=== PATIENT | female | born 1990 | race Caucasian/White ===

== ENCOUNTER 2025-02-15 08:50 | Outpatient (AMB) | payer OTHER, SELFPAY ==
--- NOTE | 2025-02-15 09:04 | A.OFFPC_ITS ---
Vital Signs 02/15/25 09:07 Height 5 ft 9.5 in Weight 179 lb BMI 26.1 BP 118/66 Blood Pressure Location Lt brachial Position Sitting Respiration 12 Pulse 78 Pulse Source Pulse Oximeter Temp 97.3 F Temp Source Oral Pulse Oximetry (%) 100 Oxygen Delivery Method Room Air Intake Visit Reasons: CPE Intake Note: New patient to establish care and cpe Insurance Sales Representative Required: No Allergies No Known Allergies Allergy (Verified 02/15/25 09:14) Medication List - Last Reconciled 02/15/25 by STACY Justice No Known Home Meds Tobacco use date assessed: 02/15/25 Dental Screening Dental Screen Date: 02/15/25 Did you have a dental visit in the last 12 months?: Yes Did you have a dental problem in the last 6 months where you did not have access to dental care?: No Was dental information given to patient?: Patient has dentist HPI HPI Comments History of Present Illness Details 34 y/o F with hx of L 3rd phalanx fractu re, migraines w/o aura, vegan diet Social: , works as six sigma project manager Fhx: PGF CHF, Parents w/ chol and HTN, Dementia PGM, MGM Surgery: s/p R hip surgery d/t congenital hip dysplasia w/ hardware Health Maintenance: Tdap 2023 Pap 2021 WNL Flu 02/15/25 Specialist Optho wears glasses History of Present Illness The patient is a 34-year-old female presenting to establish care and for a general health assessment, with concerns about recent weight gain and stress. PCP: reina Pride and reviewed. Migraine without aura: - The patient has a history of migraines without aura, which she believes are linked to her menstrual cycle, typically occurring during the first few days of her period. - Dehydration is another known trigger. - Once a migraine begins, it typically l asts for two to three days. - She manages her migraines by applying pressure to her forehead, avoiding screens, and resting in a dark room. - A past trial of sumatriptan was ineffe ctive. - She previously used propranolol as nee ded for public speaking anxiety, but not daily for migraine prevention. - Was RXd seasonique to supress periods; she does not need control and does not recall if this helped or not. Unhealthy Weight Gain: - The patient is concerned about a signi ficant weight gain of about 40 pounds, from 140 lbs in 2019 to approximately 180 lbs currently, occurring over the last 2-3 years. - Her weight has historically fluctuated between 130 lbs and 210 lbs. - She attributes the weight gain to stre ss eating. - She denies any current binging or purg ing behaviors. - She reports a history of some disorder ed eating habits around age [age] after significant weight loss but feels she has recovered from that. Generalized Anxiety Disorder: - The patient has a history of generaliz ed anxiety disorder. - Recent anxiety and depression screenin g tools were positive. - She is concerned about the mental impa ct of her stressful job. - She previously took propranolol as nee ded for public speaking anxiety but has not been on any other medications for her mood. History of hip dysplasia, R - The patient has a history of right hip dysplasia, which was not identified until she was 29 and began experiencing significant pain. - She underwent corrective surgery with hardware placement and reports her hip has been fine since the procedure. Health Maintenance: - The patient is establishing care, as i t has been a while since her last physical. - Her last comprehensive blood work was performed approximately three years ago at age 31, and the results were normal. - Her vaccinations are up to date. - For contraception, she and her use condoms. - Family history is significant for lakia ntia in her paternal grandmother and possibly her maternal grandmother, as well as high cholesterol and high blood pressure in her parents. Past Medical History - Migraines without aura - Generalized anxiety disorder - Left third phalanx fracture - Right hip dysplasia, status post-surgi vik correction with hardware at age 29 - History of disordered eating behaviors around age [age], which she reports as resolved - Past Medications: Propranolol PRN for anxiety, Sumatriptan for migraines (ineffective) - Allergies: No known allergies Review of Systems - Constitutional: Reports unintentional weight gain of approximately 40 pounds over the last 2-3 years. Reports significant job-related stress. - Neurological: Reports recurrent migrai ludwin, lasting 2-3 days, associated with her menstrual cycle and dehydration. - Psychiatric: Reports symptoms of anxie ty and stress. Endorses stress eating. Denies bingeing or purging behaviors. - Musculoskeletal: No current hip pain r eported post-surgery. Physical Exam General: Well developed, well nourished, in no acute distress. Appears stated age. Head: Normocephalic, atraumatic. Eyes: Pupils are equal, round and reactive to light and accommodation. Conjunctivae are clear. Vision grossly normal. Thyroid nonpalpable Lungs: Clear to auscultation bilaterally. No rales, rhonchi or wheeze noted. Good air flow in all lomas. Heart: Regular rate and rhythm. No murmurs, click, rubs or gallops are noted. Pulses: Peripheral pulses are equal and palpable bilaterally. Extremities: No clubbing, cyanosis nor edema is noted. Psych: Mood and affect appropriate. Results Pending Medical Decision Making The patient is a 34-year-old female establishing care with concerns of significant weight gain, stress, and menstrually-related migraines. Her weight gain appears related to stress eating, but to rule out an underlying organic cause, I have ordered comprehensive screening labs, including a CBC, CMP, HbA1c, lipid panel, TSH, vitamin D, and B12. For her catamenial migraines, we will initiate a trial of prophylactic vitamin therapy with magnesium oxide and riboflavin daily at bedtime, as this is a non- hormonal option that can be effective. I educated the patient on selecting the correct form of magnesium to avoid gastrointestinal side effects. Given her positive screens for anxiety and depression and history of LOIS, talk therapy was offered, but she has opted to defer a referral at this time. The plan is to administer an influenza vaccine today, obtain labs, start the migraine prophylaxis, and have her follow up in 4 weeks to review all results and assess treatment efficacy, which allows for her next menstrual cycle to pass. Plan 1. Migraine Without Aura - Initiate a trial of prophylactic thera py with magnesium oxide and riboflavin to be taken daily at bedtime. - Prescriptions for both were sent to [facility] patient's preferred pharmacy, [facility]. - Patient was educated on the importance of purchasing magnesium oxide specifically to avoid the laxative effect of magnesium citrate. - Follow up in approximately 4 weeks to assess the effectiveness of the treatment, particularly in relation to her next menstrual cycle. 2. Unhealthy Weight Gain / Stress Eating - Ordered comprehensive screening labs t o rule out an organic cause for weight gain, including a CBC, CMP, lipid panel, HbA1c, TSH, vitamin D, and B12. - Discussed talk therapy as a potential intervention for stress eating; patient declined a referral at this visit. - Plan to review lab results and discuss further management at the 4-week follow-up appointment. 3. Health Maintenance - The patient is establishing primary ca re with this visit. - Administering influenza vaccine today. - Provided instructions for patient port al sign-up and use for communication. - Scheduled a follow-up visit in [facility] 4 weeks to review lab results and monitor progress. Patient Instructions - Take magnesium oxide and riboflavin ev day at bedtime to help prevent your migraines. - If buying over the counter, make sure you get magnesium oxide, not magnesium citrate, which is a laxative. - If buying riboflavin over the counter, get only riboflavin, not a B-complex vitamin. - You will receive a flu shot today befo re you leave. - Please go to the lab here in the [facility] to have your blood drawn today. - Sign up for the patient portal using [employer] email link you receive. The link is only active for 24 hours. - Please use the messaging feature in e patient portal to communicate with the office. Do not use the appointment request feature. - Make a follow-up appointment at the [facility] desk for about 4 weeks from now. Consent Patient was informed and verbally consented to the use of an ambient scribe for clinic note documentation during this visit. Total time spent caring for the patient today was 45 minutes. This includes time spent before the visit reviewing the chart, time spent during the visit, and time spent after the visit on documentation, reviewing laboratory results, diagnostic imaging, medications, performing a medically necessary evaluation, counseling on diagnoses, care coordination, ordering appropriate tests, ordering appropriate medications, review of tests performed by other providers, reporting test results with the patient, communication with other healthcare providers. [facility] Medical History (Updated 02/15/25 @ 09:41 by MIGUEL ÁNGEL Justice) Migraines Surgical History (Updated 02/15/25 @ 09:41 by MIGUEL ÁNGEL Justice) History of hip surgery Social History (Updated 02/15/25 @ 09:10 by Ryan Shaffer MA) Household Members: Spouse Both parents involved: No Caregiver staying overnight: No Housing: House Are you a primary clinical care leader to a significant other at home: No Do you presently have visiting nurse or other home services: No 75 years or older and lives alone: No Alcohol intake: never Patient Tobacco Use Status: Never used Tobacco e-Cigarette/Vaping Use: Never Used Second Hand Smoke Exposure: No Current occupational status: employed Current occupation: computer programming manager Current occupational exposures/hazards: No Cognitive needs: No Hearing needs: No Vision needs: Yes (wear glasses) Questionnaire PHQ-9 Over the last 2 weeks, how often have you been bothered by any of the following problems? 1. Little interest or pleasure in doing things: not at all 2. Feeling down, depressed, or hopeless: several days 3. Trouble falling or staying asleep, or sleeping too much: several days 4. Feeling tired or having little energy: not at all 5. Poor appetite or overeating: several days 6. Feeling bad about yourself - or that you are a failure or have let yourself or your family down: not at all 7. Trouble concentrating on things, such as reading the newspaper or watching television: nearly every day 8. Moving or speaking so slowly that other people could have noticed. Or the opposite - being so fidgety or restless that you have been moving around a lot more than usual: several days 9. Thoughts that you would be better off or of hurting yourself in some way: not at all Total score: 7 Depression Screening Interpretation: Positive Depression Screening Follow-up: Existing condition and In treatment Depression Screening Done: Yes 33227 - PHQ-9 Billing: Yes Source: Developed by Drs. Florencio Yadav, Iqra Harrington, Antwon Denis and colleagues, with an educational mary from [employer]. Thrive Questionnaire Date Thrive assessed: 02/15/25 I am a: Patient What is your living situation today?: I have a steady place to live Within the past 12 months, did the food you bought not last and you didn't have the money to get more?: Never true Within the past 12 months, did you worry whether your food would run out before you got money to buy more?: Never true Do you have trouble paying for medicines?: No Do you have trouble getting transportation to medical appointments?: No Do you have trouble paying your heating and electricity bill?: No Do you have trouble taking care of your child, family member or friend?: No Do you have trouble with day-to-day activities such as bathing, preparing meals, shopping, managing finances, etc.?: No Are you currently unemployed and looking for a job?: No Are you interested in more education?: No Please select the resources that you would like help with: None Currently or been in a relationship where the following occur: No concerns reported THRIVE Score: 0 AUDIT C Alcohol Use Questionnaire (AUDIT-C) 1. How often do you have a drink containing alcohol?: Never 3. How often do you have six or more drinks on one occasion?: Never Total Score: 0 Score Reviewed/Action Taken: Yes LOIS-7 AMB Questionnaire LOIS-7 Date LOIS - 7 assessed: 02/15/25 Feeling nervous, anxious, or on edge: 2 = More than half the days Not being able to stop or control worryin = Several days Worrying too much about different things: 2 = More than half the days Trouble relaxin = Nearly every day Being so restless that it is hard to sit still: 3 = Nearly every day Becoming easily annoyed or irritable: 2 = More than half the days Feeling afraid as if something awful might happen: 3 = Nearly every day Total LOIS-7 score (0-4 normal; 5-9 mild; 10-14 moderate; 15-21 severe): 16 Source: Developed by Drs. Florencio Yadav, Iqra Harrington, Antwon Denis and colleagues, with an educational mary from [employer]. LOIS-7 Assessment Billing LOIS-7 Assessment Tool: LOIS-7 Assessment 35907 Physical exam (Primary Care) Vital Signs: Last Vital Signs Temp 97.3 F 02/15/25 09:07 Pulse 78 02/15/25 09:07 Resp 12 02/15/25 09:07 BP 118/66 02/15/25 09:07 Pulse Ox 100 02/15/25 09:07 Oxygen Delivery Method Room Air 02/15/25 09:07 BMI result Body Mass Index 26.1 Tobacco/Smoking Status: Tobacco use Status Tobacco use date assessed 02/15/25 02/15/25 09:09 Patient Tobacco Use Status Never used Tobacco 02/15/25 09:10 e-Cigarette/Vaping Use Never Used 02/15/25 09:10 PHQ-9: PHQ-9 Score PHQ-9: Total score 7 02/15/25 09:16 Depression Screening Interpretation: Positive Depression Screening Follow-up: Existing condition and In treatment Thrive Assessment: Date of Thrive Assessment Date Thrive assessed 02/15/25 02/15/25 09:09 Currently or been in a relationship where the following occur: No concerns reported Office Procedures Flu Questionnaire Does the patient have a severe egg allergy?: No Does the patient have severe life threatening allergies?: No Does the patient have a fever or illness today?: No Has the patient ever had Guillain-Milo Syndrome?: No Has the patient ever had any past reaction to a flu shot?: No Immunizations Fluarix [id number] (PF) 45 mcg (15 mcg x 3)/0.5 mL IM syringe Performing Provider: MIGUEL ÁNGEL Justice Performing Location: [facility] Family Medicine Administered by: Ryan Shaffer MA on 02/15/25 09:36 Dose Route Admin Location Dispensed Lot Number Expiration Date [facility] Insurance Sales Representative 0.5 mL IM Left Deltoid 0.5 mL [id number] 10/08/25 10576-235-42 [employer] VIS Given Date VIS Provided VIS Publication Date 02/15/25 Single Vaccine 24 Eligibility Eligibility Date Funding Source Not [facility] Eligible 02/15/25 Private Coding Level of Care Code New Pt Level 4 (30732) Complex EM visit Add On G2211 Diagnoses Encounter to establish care Z76.89 History of Papanicolaou smear of cervix Z92.89 Migraine without aura and without status migrainosus, not intractable G43.009 Intractability: not intractable Status migrainosus presence: without status migrainosus LOIS (generalized anxiety disorder) F41.1 Mild episode of recurrent major depressive disorder F33.0 Major depression episode severity: mild Influenza vaccination administered at current visit Z23 Additional Codes LOIS-7 Assessment Billing - LOIS-7 Assessment Tool: LOIS-7 Assessment 03303 ([id number]) PHQ-9 - 69615 - PHQ-9 Billing: Yes ([id number]) Assessment & Plan Assessment & Plan (1) Encounter to establish care: Code(s): Z76.89 - Persons encountering health services in other specified circumstances (2) History of Papanicolaou smear of cervix: Onset Date: ~08/2021 Code(s): Z92.89 - Personal history of other medical treatment Category: Medical (3) Migraine without aura: Code(s): G43.009 - Migraine without aura, not intractable, without status migrainosus Category: Medical Qualifiers: Intractability: not intractable Status migrainosus presence: without status migrainosus Qualified Code(s): G43.009 - Migraine without aura, not intractable, without status migrainosus (4) LOIS (generalized anxiety disorder): Code(s): F41.1 - Generalized anxiety disorder Category: Medical (5) MDD (major depressive disorder), recurrent episode: Code(s): F33.9 - Major depressive disorder, recurrent, unspecified Category: Medical Qualifiers: Major depression episode severity: mild Qualified Code(s): F33.0 - Major depressive disorder, recurrent, mild (6) Influenza vaccination administered at current visit: Onset Date: ~02/15/25 Code(s): Z23 - Encounter for immunization Category: Medical Plan . Orders: Orders Comprehensive Met. Panel Today Z00.00 - Encounter for general adult medical examination without abnormal findings Lipid Panel Today Z00.00 - Encounter for general adult medical examination without abnormal findings Influenza 1426-1924 Immunization Today Z23 - Encounter for immunization Complete Blood Count no Diff Today Z00.00 - Encounter for general adult medical examination without abnormal findings Hemoglobin A1c Today Z00.00 - Encounter for general adult medical examination without abnormal findings Microalbumin, Random (w Creat) Today Z00.00 - Encounter for general adult medical examination without abnormal findings TSH reflex Free T4 Today Z00.00 - Encounter for general adult medical examination without abnormal findings Vitamin B12 and Folate Today Z00.00 - Encounter for general adult medical examination without abnormal findings Vitamin D 25-OH Total Today Z00.00 - Encounter for general adult medical examination without abnormal findings Medications: New magnesium oxide 400 mg PO BEDTIME 90 caps 2RF riboflavin (vitamin B2) 400 mg PO BEDTIME 90 tabs 2RF Patient Instructions: Walk-In Care (Urgent Care): We Make it Easy Walk-in for urgent medical issues such as: ? Seasonal Allergies ? Insect Bites ? Cough ? Diarrhea ? Acute Asthma Attacks ? Back, Knee or Joint Pain ? Ear Infection ? Fever without a Rash ? Headaches ? Nausea ? [place] Eye, Rash or Skin Irritation ? Sore Throat ? Sports Physicals ? Vomiting Most insurances are accepted. Patients do not need to be part of the [facility] to seek care at the walk-in clinic. Locations [address] [place] [address] Open Tuesday through Tuesday 8am-5pm *Hours may vary due to staffing availability. To confirm Walk-In Care hours please call. [address] [address] ? [phone] [facility] in [place] provides services to ages 18 and over. Open Tuesday-Tuesday: 7 a.m. to 5 p.m. and Tuesday: 9 a.m. to 3 p.m.* *Hours may vary due to staffing availability. To confirm Walk-In Care hours in [place], please call [phone]. [address] [place] [address] ? [phone] [facility] in [place] provides services to ages 12 and over. Open Tuesday-Tuesday: 8 a.m. to 5 p.m. Hours may vary due to staffing availability. To confirm Walk-In Care hours in [place], please call [phone]. LABORATORY SERVICES: [facility] Lab ? Primary Location [address] [place] [address] Tuesday through Tuesday 6:00 AM ? 5:00 PM Tuesday 7:00 AM ? 11:00 AM* [phone] The [facility] Lab is centrally located near the front entrance of the [facility] for easy outpatient access. Convenient parking is provided for outpatients. *Hours may vary due to staffing availability. To confirm Laboratory hours for any location, please call [phone]. Offsite Location For your convenience, we offer offsite laboratory draw stations at the following locations: [address] [place] [address] ? [address], [address] Tuesday through Tuesday 7:30 AM ? 1:00 PM* [phone] *Hours may vary due to staffing availability. To confirm Laboratory hours for any location, please call [phone]. [place] ? [address] Tuesday through Tuesday 6:00 AM ? 3:30 PM* Tuesday 6:30 AM ? 3 PM* [phone] *Hours may vary due to staffing availability. To confirm Laboratory hours for any location, please call [phone]. [address] [facility] Tuesday through Tuesday 7:30 AM ? 4:00 PM* [phone] *Hours may vary due to staffing availability. To confirm Laboratory hours for any location, please call [phone] [place] [address] Tuesday through 9:00 AM ? 4:00 PM* *Hours may vary due to staffing availability. To confirm Laboratory hours for any location, please call [phone]. Appointments are not necessary. Walk-ins are welcome. Like all the departments throughout the [facility], our Lab undergoes frequent reviews to ensure the quality and accuracy of test results, and our staff takes special pride in its status as a nationally accredited facility. Patient Portal: [facility] ONE PATIENT. ONE RECORD. BETTER CARE. [facility] has a fully integrated, cutting- edge mobile electronic health information system that has revolutionized the way we care for our patients and manage our organization. This system improves communication and coordination enabling us to provide safe, higher-quality care, and an overall positive experience for staff and patients. Our first priority, as always, is to deliver the highest quality care possible. The system is running in the background supporting that priority. This portal is for all [facility] and [facility] services and practices. If you are experiencing any technical difficulties with enrolling or logging into the Patient Portal please complete the [facility] Patient Portal Technical Support Form. [facility] and [facility] now offers a new secure on-line interactive tool for patients to review their health information ? ?Patient Portal. This interactive web portal will enable patients and their families to take an active role in their care by providing easy, secure access to their health information via the internet. The Patient Portal provides patients with instant access to their health information, including laboratory results, medications, allergies, demographic information, visit history, and more. In addition to managing their own care, parents and health care proxies with authorized consent will appreciate the ability to access the records of those individuals for whom they provide care. Please note: if you wish to gain access (Proxy) to another patient?s portal, you will be required to come to the Medical Records Department in person at [facility]. Both the patient giving proxy access and the proxy will need to provide photo identification and complete the appropriate authorization. The Patient Portal also allows track their appointments online. The [facility] Patient Portal also saves patients time by allowing them to submit updates to their demographic and contact information prior to their visits. Portal email notifications will also alert patients to any new activity on their portal, such as test results and new appointments. In order to initially enroll in the [facility] Patient Portal, you will need to enter some required information including the following: * your [facility] Medical Record number * your personal home email address * name * date of Please note: In order to enroll in the [facility] Patient Portal, we need to have your email address on file in your electronic medical record. ?The email address needs to be specific for one person (yourself) in order for your Portal enrollment to be successful. ?You can update your email address in person with our Registration staff when you are registering for a hospital visit. ?Otherwise, you will need to come to the Health Information Management (Medical Records) Department at [facility]. ?We are open from Tuesday ? Tuesday from 7:30 a.m. ? 4:30 p.m. ?You will be required to present a photo id. Once you have successfully enrolled in the Patient Portal, you will receive a one-time user id and password for the Portal, sent to your email address. ?This will allow you to log into the Patient Portal within 99 hrs and reset your own logon id and password, and define personal security questions. ?Once your permanent login and password have been set, you can log into the [facility] Patient Portal at any time via the blue button above or from the Portal Logon button on any page of the [facility] website. [facility] and [facility] encourage all of our patients to enroll in Patient Portal as it presents a valuable opportunity for patients and their families to actively participate in their care and stay healthy Welcome to [facility]. ?We look forward to working with you.
[2025-02-15 09:07] VITALS: BP 118/66; PULSE 78; RESP 12; TEMP 36.3; O2SAT 100; BMI 26.1
== END 2025-02-15 09:37 | disposition home or self-care (01) ==
LOC: HO.HMCFM 08:51
PROVIDERS: PCP Nurse Practitioner Family; Visit Provider Nurse Practitioner Family
DX: Z76.89 Persons encountering health services in other specified circumstances (principal); Z92.89 Personal history of other medical treatment; G43.009 Migraine without aura, not intractable, without status migrainosus; F41.1 Generalized anxiety disorder; F33.0 Major depressive disorder, recurrent, mild; Z23 Encounter for immunization

== ENCOUNTER 2025-02-15 08:50 | Outpatient (REF) | payer OTHER, SELFPAY ==
--- OUTSIDE RECORDS SUMMARY | 2025-02-15 11:04 | XMS_ITS | Clinical Summary ---
Author Organization [facility] Address [address] [place] [address] Phone Care Team Providers Care Tractor Trailer Driver Name Role Phone Shaina Roldan Primary Care Provider [phone] Judy Hoskins Unavailable Shaina Roldan Unavailable [phone] Social History Tobacco Use Types Packs/Day Years Used Date Smoking Tobacco: Never Assessed Comments Unknown Sex and Gender Information Value Date Recorded Sex Assigned at Not on file Legal Sex Female 1:09 AM EDT Gender Identity Not on file Sexual Orientation Not on file Plan of Treatment Not on file Care Teams Tractor Trailer Driver Relationship Specialty Start Date End Date Shaina Roldan [address] [place] [address] PCP - General 01/17/19 Judy Hoskins [address] [facility] [address] [place] [address] PCP - Insurance PCP 04/19/17 Shaina Roldan [address] [place] [address] PCP - Clinical PCP 01/17/19
--- OUTSIDE RECORDS SUMMARY | 2025-02-15 11:04 | XMS_ITS | Clinical Summary ---
Author Organization [facility] Address [address] [place] [address] Care Team Providers Care Automatic Profile Sander Operator Name Role Phone Unavailable Primary Care Provider Unavailabl e Source Comments PLEASE NOTE, if this patient is a minor, it may be UNLAWFUL to discuss sensitive information that is contained in these records (such as FAMILY PLANNING, MENTAL HEALTH or SUBSTANCE ABUSE) with the minor patient's parent or other person without the patient's specific authorization.[facility] Allergies Active Allergy Reactions Criticality Noted Date Comments Nickel Rash 12/29/2018 Medications No known medications Active Problems Problem Noted Date Diagnosed Date Encounter for counseling regarding contraception 01/09/2019 Assessment & Plan (01/09/2019 8:50 PM EDT): Does not want to be . Reviewed options, could try angela vs other IUD placement w miso vs cervical block given failed insertion attempt in past, not interested in depo/nexplanon. cOCPs patient's first choice, not contraindicated but melasma likely to recur, could trial loloestrin if desires, will send rx if decides on this. Generalized anxiety disorder 12/29/2018 Assessment & Plan (01/09/2019 8:48 PM EDT): Will refer to for therapy. Would rather avoid medications if possible, feels that in some ways her anxiety is helping her to be successful, doesn't want to entirely eliminate, just cope better. Immunizations Immunization Administration Dates Next Due Flu, Cell Culture based, Multi Dose, 6m+, Flucel vax 12/29/2018 Family History Medical History Relation Name Comments No Known Problems Brother Diabetes Maternal Grandfather Osteoarthritis Mother Dementia Paternal Grandmother Cancer Neg breast, colon, ovarian Relation Name Status Comments Brother Maternal Grandfather Mother Paternal Grandmother Social History Tobacco Use Types Packs/Day Years Used Date Smoking Tobacco: Never Smokeless Tobacco: Never Alcohol Use Standard Drinks/Week Comments Yes 0 (1 standard drink = 0.6 oz pur e alcohol) Social Connections Answer Date Recorded Connectedness 0 12/18/2023 Financial Resource Strain Answer Date R ecorded Financial Resource Strain 0 2018 Stress Answer Date Recorded Stress 0 12/29/2018 Physical Activity Answer Date Recorded Physical Activity 0 12/29/2018 Food Insecurity Answer Date Recorded Food 0 12/29/2018 Transportation Needs Answer Date Record ed Transportation 0 12/29/2018 Housing Stability Answer Date Recorded Housing 0 12/29/2018 Safety and Environment Answer Date Woody rded Safety 0 12/29/2018 Utilities Answer Date Recorded Utilities 0 12/29/2018 Employment Answer Date Recorded Employment 0 12/29/2018 Comments Unknown Sex and Gender Information Value Date Recorded Sex Assigned at Not on file Legal Sex Female 7:19 AM PDT Gender Identity Not on file Sexual Orientation Not on file Last Filed Vital Signs Vital Sign Reading Time Taken Comments Blood Pressure 115/73 05/31/2019 10:37 AM EST Pulse 62 05/31/2019 10:37 AM EST Temperature 37.1 C (98.7 F) 05/31/2019 10:37 AM EST Respiratory Rate - - Oxygen Saturation 99% 05/31/2019 10:37 AM EST Inhaled Oxygen Concentration - - Weight 75.6 kg (166 lb 9.6 oz) 05/31/2019 10:37 AM EST Height 174.6 cm (5' 8.75 ) 12/29/2018 8:29 AM ED T Body Mass Index 24.78 12/29/2018 8:29 AM EDT Plan of Treatment Not on file Insurance [employer] Member Subscriber Plan / Payer (Ef fective 2017-Present) Name:Lindsey Dias Relation to Subscriber:Self Name:Lindsey Dias Payer ID:[id number] (NAIC) Type:Indemnity Address: [facility] [id number] [place] [id number]
[2025-02-15 11:51] LABS: Hematocrit 40.3 % (37.0-47.0); Hemoglobin 13.3 g/dl (12.0-16.0); Mean Corpuscular HGB Conc 33.0 g/dl (31.0-35.0); Mean Corpuscular Hemoglobin 30.5 pg (27.0-33.0); Mean Corpuscular Volume 92.4 fL (80.0-98.0); NRBC Abs Auto 0.000 X10*3/uL (0.0-0.012); NRBC Pct Auto 0.0 /100WBC (0.0-0.2); Platelet Count 354 X10*3/uL (160-400); Red Blood Count 4.36 X10*6/uL (4.20-5.50); White Blood Count 3.4 X10*3/uL (4.8-10.8)
[2025-02-15 12:35] LABS: Alanine Aminotransferase 17 U/L (0-31); Albumin Level 4.6 g/dL (3.5-5.0); Alkaline Phosphatase 64 U/L (39-117); Anion Gap 10 (12-20); Aspartate Amino Transferase 20 U/L (5-31); Blood Urea Nitrogen 8 mg/dL (9-16); Calcium 9.3 mg/dL (8.4-10.2); Carbon Dioxide 28 mmol/L (22-29); Chloride 107 mmol/L (96-108); Cholesterol 147 mg/dL (<200); Estimated Glomerular Filt Rate > 60; HDL Cholesterol 55 mg/dL (>40); Potassium 4.2 mmol/L (3.3-5.1); Sodium 141 mmol/L (135-145); Total Protein 7.4 g/dL (6.5-8.0); Triglycerides 46 mg/dL (<150)
[2025-02-15 12:46] LABS: Folate 13.5 ng/mL (> or = 4.0); Vitamin B12 405 pg/mL (200-900)
== END 2025-02-15 08:51 | disposition home or self-care (01) ==
LOC: HO.WFDLDS 08:50
PROVIDERS: PCP Nurse Practitioner Family; Visit Provider Nurse Practitioner Family
DX: Z00.00 Encounter for general adult medical examination without abnormal findings (principal); G43.909 Migraine, unspecified, not intractable, without status migrainosus; R63.5 Abnormal weight gain; F41.1 Generalized anxiety disorder; Q74.2 Other congenital malformations of lower limb(s), including pelvic girdle; G43.009 Migraine without aura, not intractable, without status migrainosus; F33.0 Major depressive disorder, recurrent, mild; Z23 Encounter for immunization; Z76.89 Persons encountering health services in other specified circumstances; Z92.89 Personal history of other medical treatment; Z13.1 Encounter for screening for diabetes mellitus
CPT/HCPCS: 36415; 80053; 80061; 82306; 82570; 82607; 82746; 83036; 84443; 85027; 90471; 90656; 96127

== ENCOUNTER 2025-03-22 08:42 | Outpatient (AMB) | payer OTHER, SELFPAY ==
--- NOTE | 2025-03-22 08:47 | A.OFFPC_ITS ---
Vital Signs 03/22/25 08:50 Height 5 ft 9.5 in Weight 179 lb 4 oz BMI 26.1 BP 118/68 Blood Pressure Location Lt brachial Position Sitting Respiration 12 Pulse 62 Pulse Source Pulse Oximeter Temp 97.6 F Temp Source Oral Pulse Oximetry (%) 98 Oxygen Delivery Method Room Air Intake Visit Reasons: 4 weeks fu headaches/labs Intake Note: Follow up on headaches and review labs Ingot Weigher Required: No Allergies No Known Allergies Allergy (Verified 03/22/25 08:48) Medication List - Last Reconciled 03/22/25 by Gloria Corbin SHELLFISH BED WORKER- cholecalciferol (vitamin D3) 25 mcg PO DAILY magnesium oxide 400 mg PO BEDTIME riboflavin (vitamin B2) 400 mg PO BEDTIME Tobacco use date assessed: 03/22/25 Dental Screening Dental Screen Date: 03/22/25 Did you have a dental visit in the last 12 months?: Yes Did you have a dental problem in the last 6 months where you did not have access to dental care?: No Was dental information given to patient?: Patient has dentist HPI HPI Comments History of Present Illness Details 34 y/o F with hx of L 3rd phalanx fractu re, migraines w/o aura, vegan diet, leukopenia , vit d def, LOIS Social: , works as application project leader Fhx: PGF CHF, Parents w/ chol and HTN, Dementia PGM, MGM Surgery: s/p R hip surgery d/t congenital hip dysplasia w/ hardware Health Maintenance: Tdap 2023 Pap 2021 WNL, repeat 2026 by co Flu 02/15/25 Specialist Optho wears glasses History of Present Illness The patient is a 34-year-old female presenting for a follow-up appointment to discuss lab results, migraines, weight gain, stress, anxiety, and contraception also for CPE . Migraine without aura: - The patient complains of migraines wit hout aura and was previously advised to start magnesium oxide and riboflavin for prophylaxis. - She has been taking magnesium and ribo flavin for about a week. - Since her last visit, she has had two migraines: one about two weeks after the visit and another during her menstrual period. Anxiety and Unintentional Weight Gain: - The patient has concerns about unhealt hy weight gain and stress eating, which prompted lab work at her last visit. - She attributes the weight gain to her eating habits and has been trying to exercise more regularly, although she has not seen much improvement in a month, partly due to the holidays. - Her job is a significant source of str ess, and she recently experienced a week that was difficult enough to cause a panic attack. - She previously did not think counselin g would be beneficial. - The patient has been historically agai nst medications for anxiety and overeating but is now open to considering them. Contraception Management: - The patient wishes to start cont rol primarily to stop her periods. - She has a history of discontinuing bir th control due to significant spotting. - The patient has no plans to get pregna nt and does not wish to have children in the future. Urinary Frequency: - The patient reports frequent urination , which she believes is related to anxiety, especially during work meetings. - She has no signs of a urinary tract in fection or concerns for sexually transmitted diseases. Health Maintenance: - The patient's last Pap smear was in and was normal. She would like for me to do her next one, due 2026 - She is up to date on her flu and tetan us shots. - She is not currently active with a HEAD TENNIS COACH provider. - She follows a vegan diet. - Lab work was ordered at the last visit for general screening and to evaluate for causes of weight gain. - Her last eye exam was two years ago, a nd her last dental visit was routine. She wears glasses Past Medical History - Migraine without aura - Anxiety with panic attacks - Vitamin D deficiency, currently taking a supplement - History of discontinuing oral contrace ptives due to spotting - No history of seizures Past Surgical History - Removal of a noncancerous mole on the abdomen. Family History Family history was reviewed at the previous visit. Social History - Employment: Reports a stressful job. - Nutrition: Follows a vegan diet. - Exercise: Has been trying to exercise more regularly. - Family Planning: Does not desire child kasia. Review of Systems - Constitutional: Denies fever, chills. Reports unintentional weight gain. - Neurological: Reports migraines withou t aura. Denies seizures. - Psychiatric: Reports anxiety, stress, panic attacks, and stress eating. Feels her mood has improved with vitamin D supplementation. - Genitourinary: Reports frequent urinat ion she associates with anxiety. Denies concerns for STDs. - Skin: Reports chronically dry skin, es pecially in winter. Notes a new skin tag. - Musculoskeletal: Denies joint pain or swelling. Reports normal muscle soreness after workouts. - Gastrointestinal: Reports normal bowel movements. Physical Exam General: Well developed, well nourished, in no acute distress. Appears stated age. Head: Normocephalic, atraumatic. Eyes: Pupils are equal, round and reactive to light and accommodation. Conjunctivae are clear. Scleras nonicteric bilat. Vision grossly normal. Ears: TMs clear AU, EACS WNL Nose: Patent, without discharge. Dry skin noted. Neck: No carotid bruit bilat. Supple, no adenopathy or thyromegaly. Breast: Clinical breast exam performed. Normal findings. Edu on SBE. Lungs: Clear to auscultation bilaterally. No rales, rhonchi or wheeze noted. Good air flow in all lomas. Heart: Regular rate and rhythm. No murmurs, click, rubs or gallops are noted. Abdomen: Bowel sounds present in all quadrants. The abdomen is soft, nontender, with no masses or organomegaly noted. No hernias are noted. : Deferred. Reviewed recommendations for routine HEAD TENNIS COACH. Pulses: Peripheral pulses are equal and palpable bilaterally. Extremities: No clubbing, cyanosis nor edema is noted. Neurologic: Gait and station normal. Cranial Nerves 2-12 intact. Motor strength grossly symmetrical and intact. No sensory loss. Balance normal. Skin: No rashes, ulcers, or lesions noted. Turgor is good. Skin color is good. Hair and nails are without abnormalities. Noted dry skin and a small skin tag. Psych: Normal eye contact, affect and mood appropriate, and normal interactions. Patient is alert and appropriate to context. Discussed anxiety and overeating, prescribed Wellbutrin. Results see below Medical Decision Making The patient is a 34-year-old female here for a follow-up of migraines, anxiety with stress eating, and unintentional weight gain. Her recent lab work was largely reassuring, ruling out common metabolic causes for her weight gain such as thyroid dysfunction or diabetes. 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 Reassurance was provided, and the plan is to monitor this with future lab work. The patient's unintentional weight gain and stress eating appear to be primarily driven by anxiety related to her job, as evidenced by her report of panic attacks. Since lifestyle modifications such as exercise have not been sufficient, and she is now open to medication, bupropion (Wellbutrin) is recommended. This choice is based on its dual efficacy for anxiety and curbing of overeating behaviors. Contraindications such as seizure history and were ruled out. The patient was counseled on the side effect profile, including potential constipation and a rare risk of increased anxiety due to its stimulant properties, and the need for daily morning administration. For contraception, the patient desires menstrual suppression. Levonorgestrel- ethinyl (91) is a suitable option as it provides extended-cycle contraception, leading to only four periods per year, which may also reduce her menstrual migraines. She was counseled that spotting can occur, particularly in the first year, as her body adjusts. Her urinary frequency is likely a behavioral manifestation of anxiety, and behavior modification with timed voiding was recommended as the initial approach. She will continue migraine prophylaxis with magnesium and riboflavin. A physical exam was performed today, and follow-up is scheduled in 6-8 weeks to assess her response to the new medications and for a weight check. Plan Health Maintenance - An annual physical examination was com pleted today. - A clinical breast exam performed elaine artemio as part of her physical. - Pap smears are recommended every five years, given her history of normal results. - Continue vitamin D supplement. - CBC will be checked in 3 months to mon itor leukopenia, CBC annually to monitor for anemia in the setting of vegan diet, include b12. - The patient was advised to apply a low -dose hydrocortisone cream for her dry skin. - Follow up in 6-8 weeks for a medicatio n check. 1. Migraine Without Aura - Continue magnesium oxide and riboflavi n for migraine prophylaxis. - Starting Levonorgestrel-ethinyl (91) b irth control is also intended to reduce the frequency of migraines by reducing the number of menstrual periods to four per year. 2. Anxiety And Stress With Overeating - Start bupropion (Wellbutrin) once lawrence y in the morning to manage anxiety and curb overeating. - A 90-day supply will be sent to her armacy. - The medication is expected to take abo ut two weeks to start working, with full effect in about six weeks. - Patient was counseled on possible side effects, including constipation and a r are potential for increased anxiety. - Follow up in 6-8 weeks to evaluate the medication's effectiveness and for a weight check. 3. Leukopenia - The low white blood cell count is like ly due to cyclical leukopenia and is not concerning at this time. - Will continue to monitor this lab valu e with future blood work 3 months 4. Contraception Management - Initiate Levonorgestrel-ethinyl (91) o ral contraceptive pill to achieve menstrual suppression, which may also help with menstrual migraines. - Patient was counseled that breakthroug h bleeding or spotting might occur, silvano julien within the first year, as her body adjusts. 5. Urinary Frequency - Advised behavioral modification with t imed voiding, aiming to hold her bladder for up to four hours, to retrain bladder habits as this is likely anxiety- related. - The new anxiety medication may also he lp reduce the urge. - The patient was instructed to report i f she feels an uncontrollable urge to urinate, which would warrant further investigation. 6. Vit d def, cont supplement, repeat la bs 3 months. Patient Instructions - Take bupropion (Wellbutrin) one tablet every morning. This medication is for anxiety and to help control stress eating. You should start to notice an effect in about two weeks. - Start taking Levonorgestrel-ethinyl (9 1) control pills as directed. This will cause you to have only four periods per year. You may experience some irregular spotting, especially in the first year, as your body gets used to the new hormone schedule. - Continue taking magnesium and riboflav in for migraine prevention. - Continue taking your vitamin D supplem ent. - For urinary frequency, try to practice timed voiding. This means creating a schedule for using the restroom (for example, every 4 hours) and trying to stick to it, even if you feel an urge sooner. This helps retrain your bladder. - Avoid obsessively checking your weight on the scale. The medication and lifestyle changes will work over time. - Schedule a follow-up appointment in 6- 8 weeks to check on how you are doing with the new medications. - For dry skin on your nose, you can twila ly a small amount of [id number] hydrocortisone cream. - Let me know if you experience any into lerable side effects from the new medications or if you feel an uncontrollable urge to urinate. Consent The patient provided verbal consent for today's physical examination, including a clinical breast exam. Patient was informed and verbally consented to the use of an ambient scribe for clinic note documentation during this visit. An additional 20 minutes was spent addressing the problem(s) noted at todays visit. This includes time spent before the visit reviewing the chart, time spent during the visit, and time spent after the visit on documentation reviewing laboratory results, diagnostic imaging, medications, performing a medically necessary evaluation, counseling on diagnoses, care coordination, ordering appropriate tests, ordering appropriate medications, review of tests performed by other providers, reporting test results with the patient, communication with other healthcare providers. [facility] Medical History (Updated 03/22/25 @ 10:05 by MIGUEL ÁNGEL Justice) Migraines Surgical History (Updated 02/15/25 @ 09:41 by MIGUEL ÁNGEL Justice) History of hip surgery Family History (Updated 02/15/25 @ 10:05 by Ryan Shaffer MA) Mother HTN (hypertension) Diabetes Thyroid disorder Father High cholesterol Maternal Grandfather Cardiovascular disease Social History (Updated 02/15/25 @ 09:10 by Ryan Shaffer MA) Household Members: Spouse Both parents involved: No Caregiver staying overnight: No Housing: House Are you a primary animal care assistant to a significant other at home: No Do you presently have visiting nurse or other home services: No 75 years or older and lives alone: No Alcohol intake: never Patient Tobacco Use Status: Never used Tobacco e-Cigarette/Vaping Use: Never Used Second Hand Smoke Exposure: No service: No Current occupational status: employed Current occupation: research & analytics manager Current occupational exposures/hazards: No Cognitive needs: No Hearing needs: No Vision needs: Yes (wear glasses) Questionnaire PHQ-9 Over the last 2 weeks, how often have you been bothered by any of the following problems? 1. Little interest or pleasure in doing things: not at all 2. Feeling down, depressed, or hopeless: not at all 3. Trouble falling or staying asleep, or sleeping too much: not at all 4. Feeling tired or having little energy: not at all 5. Poor appetite or overeating: not at all 6. Feeling bad about yourself - or that you are a failure or have let yourself or your family down: not at all 7. Trouble concentrating on things, such as reading the newspaper or watching television: not at all 8. Moving or speaking so slowly that other people could have noticed. Or the opposite - being so fidgety or restless that you have been moving around a lot more than usual: not at all 9. Thoughts that you would be better off or of hurting yourself in some way: not at all Total score: 0 Depression Screening Interpretation: Negative Depression Screening Done: Yes 26112 - PHQ-9 Billing: Yes Source: Developed by Drs. Florencio Yadav, Iqra Harrington, Antwon Denis and colleagues, with an educational mary from [employer]. Thrive Questionnaire Date Thrive assessed: 03/22/25 I am a: Patient What is your living situation today?: I have a steady place to live Within the past 12 months, did the food you bought not last and you didn't have the money to get more?: Never true Within the past 12 months, did you worry whether your food would run out before you got money to buy more?: Never true Do you have trouble paying for medicines?: No Do you have trouble getting transportation to medical appointments?: No Do you have trouble paying your heating and electricity bill?: No Do you have trouble taking care of your child, family member or friend?: No Do you have trouble with day-to-day activities such as bathing, preparing meals, shopping, managing finances, etc.?: No Are you currently unemployed and looking for a job?: No Are you interested in more education?: No Please select the resources that you would like help with: None Currently or been in a relationship where the following occur: No concerns reported THRIVE Score: 0 LOIS-7 AMB Questionnaire LOIS-7 Date LOIS - 7 assessed: 03/22/25 Feeling nervous, anxious, or on edge: 0 = Not at all Not being able to stop or control worryin = Not at all Worrying too much about different things: 0 = Not at all Trouble relaxin = Not at all Being so restless that it is hard to sit still: 0 = Not at all Becoming easily annoyed or irritable: 0 = Not at all Feeling afraid as if something awful might happen: 0 = Not at all Total LOIS-7 score (0-4 normal; 5-9 mild; 10-14 moderate; 15-21 severe): 0 Source: Developed by Drs. Florencio Yadav, Iqra Harrington, Antwno Denis and colleagues, with an educational mary from [employer]. LOIS-7 Assessment Billing LOIS-7 Assessment Tool: LOIS-7 Assessment 50155 Physical exam (Primary Care) Vital Signs: Last Vital Signs Temp 97.6 F 03/22/25 08:50 Pulse 62 03/22/25 08:50 Resp 12 03/22/25 08:50 BP 118/68 03/22/25 08:50 Pulse Ox 98 03/22/25 08:50 Oxygen Delivery Method Room Air 03/22/25 08:50 BMI result Body Mass Index 26.1 Tobacco/Smoking Status: Tobacco use Status Tobacco use date assessed 03/22/25 03/22/25 08:52 Patient Tobacco Use Status Never used Tobacco 03/22/25 08:48 e-Cigarette/Vaping Use Never Used 03/22/25 08:48 PHQ-9: PHQ-9 Score PHQ-9: Total score 0 03/22/25 08:48 Depression Screening Interpretation: Negative Thrive Assessment: Date of Thrive Assessment Date Thrive assessed 03/22/25 03/22/25 08:48 Currently or been in a relationship where the following occur: No concerns reported Results Reviewed Results Reviewed: Laboratory 02/15/25 Result Units Range Interpretation Provider Comments White Blood Count 3.4 X10*3/uL (4.8-10.8) Low Red Blood Count 4.36 X10*6/uL (4.20-5.50) Hemoglobin 13.3 g/dl (12.0-16.0) Hematocrit 40.3 % (37.0-47.0) Mean Corpuscular Volume 92.4 fL (80.0-98.0) Mean Corpuscular Hemoglobin 30.5 pg (27.0-33.0) Mean Corpuscular Hemoglobin Concent 33.0 g/dl (31.0-35.0) Red Cell Distribution Width 12.7 % (11.0-16.0) Platelet Count 354 X10*3/uL (160-400) Mean Platelet Volume 10.8 fL (9.4-12.3) Nucleated RBC Absolute Count (auto) 0.000 X10*3/uL (0.0-0.012) Nucleated Red Blood Cells % (auto) 0.0 /100WBC (0.0-0.2) Sodium Level 141 mmol/L (135-145) Potassium Level 4.2 mmol/L (3.3-5.1) Chloride Level 107 mmol/L (96-108) Carbon Dioxide Level 28 mmol/L (22-29) Anion Gap 10 (12-20) Low Blood Urea Nitrogen 8 mg/dL (9-16) Low Creatinine 0.67 mg/dL (0.5-1.4) Estimated Creatinine Clearance Calc Not Reportable Estimat Glomerular Filtration Rate > 60 Random Glucose 89 mg/dL (60-115) Estimated Average Glucose 97 mg/dL Hemoglobin A1c Percent 5.0 % (<6.0) Calcium Level 9.3 mg/dL (8.4-10.2) Total Bilirubin 0.4 mg/dL (0.0-1.0) Aspartate Amino Transf (AST/SGOT) 20 U/L (5-31) Alanine Aminotransferase (ALT/SGPT) 17 U/L (0-31) Alkaline Phosphatase 64 U/L (39-117) Total Protein 7.4 g/dL (6.5-8.0) Albumin 4.6 g/dL (3.5-5.0) Triglycerides Level 46 mg/dL (<150) Cholesterol Level 147 mg/dL (<200) LDL Cholesterol, Calculated 83 mg/dL (<100) HDL Cholesterol 55 mg/dL (>40) Vitamin B12 Level 405 pg/mL (200-900) 25-Hydroxy Vitamin D Total 27.5 ng/mL (>30) Low Folate 13.5 ng/mL (> or = 4.0) Thyroid Stimulating Hormone (TSH) 0.65 uIU/mL (0.32-4.0) Urine Creatinine 35.80 mg/dL Urine Microalbumin < 5.0 mg/L Urine Microalbumin/Creatinine Ratio TNP Coding Level of Care Code Est Pt Level 3 (03429) Est Pt Prev Care 18-39y(17425) Diagnoses Adult general medical exam Z00.00 Migraine without aura and without status migrainosus, not intractable G43.009 Status migrainosus presence: without status migrainosus Intractability: not intractable History of Papanicolaou smear of cervix Z92.89 Vitamin D deficiency E55.9 LOIS (generalized anxiety disorder) F41.1 Mild episode of recurrent major depressive disorder F33.0 Major depression episode severity: mild Other decreased white blood cell (WBC) count D72.818 Leukopenia type: other Additional Codes LOIS-7 Assessment Billing - LOIS-7 Assessment Tool: LOIS-7 Assessment 14638 ([id number]) PHQ-9 - 18710 - PHQ-9 Billing: Yes ([id number]) Assessment & Plan Assessment & Plan (1) Adult general medical exam: Onset Date: ~03/22/25 Code(s): Z00.00 - Encounter for general adult medical examination without abnormal findings Category: Medical (2) Migraine without aura: Code(s): G43.009 - Migraine without aura, not intractable, without status migrainosus Category: Medical Qualifiers: Status migrainosus presence: without status migrainosus Intractability: not intractable Qualified Code(s): G43.009 - Migraine without aura, not intractable, without status migrainosus (3) History of Papanicolaou smear of cervix: Onset Date: ~08/2021 Code(s): Z92.89 - Personal history of other medical treatment Category: Medical (4) Vitamin D deficiency: Code(s): E55.9 - Vitamin D deficiency, unspecified Category: Medical (5) LOIS (generalized anxiety disorder): Code(s): F41.1 - Generalized anxiety disorder Category: Medical (6) MDD (major depressive disorder), recurrent episode: Code(s): F33.9 - Major depressive disorder, recurrent, unspecified Category: Medical Qualifiers: Major depression episode severity: mild Qualified Code(s): F33.0 - Major depressive disorder, recurrent, mild (7) Leukopenia: Onset Date: ~02/2025 Code(s): D72.819 - Decreased white blood cell count, unspecified Category: Medical Qualifiers: Leukopenia type: other Qualified Code(s): D72.818 - Other decreased white blood cell count Plan . Orders: Orders Complete Blood Count Man Dif 3 Months D70.9 - Neutropenia, unspecified Vitamin D 25-OH Total 3 Months E55.9 - Vitamin D deficiency, unspecified Medications: New bupropion HCl XL (Wellbutrin XL) 150 mg PO QAM 90 tabs 0RF levonorgestrel-ethinyl estrad 0.15 mg-30 mcg (91) take 1 tablet daily following the order on blister card(s) PO 273 ea 2RF Patient Instructions: Health screenings for women You should visit your health care provider from time to time, even if you are healthy. The purpose of these visits is to: Screen for medical issues Assess your risk for future medical problems Encourage a healthy lifestyle Update vaccinations and other preventive care services Help you get to know your provider in case of an illness Information Even if you feel fine, you should still see your provider for regular checkups. These visits can help you avoid problems in the future. For example, the only way to find out if you have high blood pressure is to have it checked regularly. High blood sugar and high cholesterol levels also may not have any symptoms in the early stages. A simple blood test can check for these conditions. There are specific times when you should see your provider or receive specific health screenings. The [place] Preventive Services Task Force publishes a list of recommended screenings. Below are screening guidelines for women ages 18 to 39. BLOOD PRESSURE SCREENING Your blood pressure should be checked at least once every 3 to 5 years if: Your blood pressure is in the normal range (top number less than 120 mm Hg and bottom number less than 80 mm Hg) You don't have risk factors for high blood pressure Ask your provider if you need your blood pressure checked more often if: The top number is 120 to 129 mm Hg or the bottom number is 70 to 79 mm Hg You have diabetes, heart disease, kidney problems, are overweight, or have certain other health conditions You have a first-degree relative with high blood pressure You are Black You had high blood pressure during a If the top number is 130 mm Hg or greater or the bottom number is 80 mm Hg or greater, this is considered stage 1 hypertension. Schedule an appointment with your provider to learn how you can reduce your blood pressure. Watch for blood pressure screenings in your area. Ask your provider if you can stop in to have your blood pressure checked. BREAST CANCER SCREENING Experts do not agree about the benefits of breast self-exams in finding breast cancer or saving lives. Talk to your provider about what is best for you. A screening mammogram is not recommended for most women under age 40. Your provider may discuss and recommend mammograms, MRI scans, or ultrasounds if you have an increased risk for breast cancer, such as: A mother or sister who had breast cancer at a young age (most often starting screening earlier than the age the close relative was diagnosed) You carry a high-risk genetic marker CERVICAL CANCER SCREENING Cervical cancer screening should start at age 21 years unless your provider advises otherwise. After the first test: Women ages 21 through 29 should have a Pap test every 3 years. Exoprts do not agree on whether HPV testing is recommended for this age group. Women ages 30 through 65 should be screened with either a Pap test every 3 years or the HPV test every 5 years or both tests every 5 years (called cotesting ). Women who have been treated for precancer (cervical dysplasia) should continue to have Pap tests for 20 years after treatment or until age 65, whichever is longer. If you have had your uterus and cervix removed (total hysterectomy), and you have not been diagnosed with cervical cancer or precancer (high grade cervical neoplasia), you do not need cervical cancer screening. CHOLESTEROL SCREENING Cholesterol screening should begin at: Age 45 for women with no known risk factors for coronary heart disease Age 20 for women with known risk factors for coronary heart disease Repeat cholesterol screening should take place: Every 5 years for women with normal cholesterol levels More often if changes occur in lifestyle (including weight gain and diet) More often if you have diabetes, heart disease, kidney problems, or certain other conditions DIABETES SCREENING You should be screened for diabetes starting at age 35 and then repeated every 3 years if you have no risk factors for diabetes. Screening may need to start earlier and be repeated more often if you have other risk factors for diabetes, such as: You have a first degree relative with diabetes. You are overweight or have obesity. You have high blood pressure, prediabetes, or a history of heart disease. Screening for diabetes should be done if you are planning to become and you are overweight and have other risk factors such as high blood pressure. DENTAL EXAM Go to the dentist once or twice every year for an exam and cleaning. Your dentist will evaluate if you need more frequent visits. EYE EXAM Have an eye exam every 5 to 10 years before age 40. If you have vision problems, have an eye exam every 2 years or more often if recommended by your provider. You should have an eye exam that includes an examination of your retina (back of your eye) at least every year if you have diabetes. IMMUNIZATIONS Commonly needed vaccines include: Flu shot: get one every year. COVID-19 vaccine: ask your provider what is best for you. Tetanus-diphtheria and acellular pertussis (Tdap) vaccine: have one at or after age 19 as one of your tetanus-diphtheria vaccines if you did not receive it as an adolescent. Tetanus-diphtheria: have a booster (or Tdap) every 10 years. Varicella vaccine: receive 2 doses if you never had chickenpox or the varicella vaccine. Hepatitis B vaccine: receive 2, 3, or 4 doses, depending on your exact circumstances. Measles, mumps, and rubella (MMR) vaccine: receive 1 to 2 doses if you are not already immune to MMR. Your provider can tell you if you are immune. Ask your provider about the human papillomavirus (HPV) vaccine if: You have not received the HPV vaccine in the past You have not completed the full vaccine series (you should catch up on this shot) Ask your provider if you should receive other immunizations if you have certain health problems that increase your risk for some diseases such as pneumonia. INFECTIOUS DISEASE SCREENING Women who are sexually active should be screened for chlamydia and gonorrhea up until age 25. Women 25 years and older should be screened for chlamydia and gonorrhea if at high risk. Screening for hepatitis C: All adults ages 18 to 79 should get a one-time test for hepatitis C. people should be screened at every . Screening for human immunodeficiency virus (HIV): All people ages 15 to 65 should get a one-time test for HIV. Depending on your lifestyle and medical history, you may also need to be screened for infections such as syphilis and HIV, as well as other infections. PHYSICAL EXAM All adults should visit their provider from time to time, even if they are healthy. The purpose of these visits is to: Screen for disease Assess your risk of future medical problems Encourage a healthy lifestyle Update your vaccinations and other preventive care services Maintain a relationship with a provider in case of an illness Your height, weight, and BMI should be checked at every exam. During your exam, your provider may ask you about: Depression and anxiety Diet and exercise Alcohol and tobacco use Safety issues, such as using seat belts, smoke detectors, and intimate partner violence Your medicines and risk for interactions SKIN SELF-EXAM Your provider may check your skin for signs of skin cancer, especially if you're at high risk, such as if you: Have had skin cancer before Have close relatives with skin cancer Have a weakened immune system OTHER SCREENING Talk with your provider about colon cancer screening if you have a strong family history of colon cancer or polyps, or if you have had inflammatory bowel disease or polyps yourself. Routine bone density screening of women under 40 is not recommended.
[2025-03-22 08:50] VITALS: BP 118/68; PULSE 62; RESP 12; TEMP 36.4; O2SAT 98; BMI 26.1
== END 2025-03-22 09:23 | disposition home or self-care (01) ==
LOC: HO.HMCFM 08:43
PROVIDERS: PCP Nurse Practitioner Family; Visit Provider Nurse Practitioner Family
DX: Z00.00 Encounter for general adult medical examination without abnormal findings (principal); G43.009 Migraine without aura, not intractable, without status migrainosus; F41.1 Generalized anxiety disorder; F33.0 Major depressive disorder, recurrent, mild; E55.9 Vitamin D deficiency, unspecified; D72.818 Other decreased white blood cell count

== ENCOUNTER → 2025-03-22 08:42 | Outpatient (BNVA) | payer OTHER, SELFPAY | PROVIDERS: PCP Nurse Practitioner Family; Visit Provider Nurse Practitioner Family | DX: Z13.31 Encounter for screening for depression (principal); Z13.39 Encounter for screening examination for other mental health and behavioral disorders | CPT/HCPCS: 96127 ==